=== PATIENT | female | born 1985 | race Hispanic/Latino ===

== ENCOUNTER 2019-12-31 21:42 | Emergency (ER) | payer OTHER ==
[~2019-12-31] VITALS: Ht 157.5 cm; Wt 113.4 kg
[2019-12-31] MEDS ORDERED: ACETAMINOPHEN 325 MG TAB ONE (22:00)
[2019-12-31] MEDS: ACETAMINOPHEN 325 MG TAB PO STA (22:00)
--- NOTE | 2019-12-31 23:17 | Diagnostic Imaging Report ---
EXAMINATION: CXR 2 VIEW - HOPD INDICATION: ^cough and fever COMPARISON: None FINDINGS: PA and lateral views TUBES and LINES: None. LUNGS: Lungs are well inflated. There is no evidence of pneumonia or pulmonary edema. PLEURA: No pleural effusion or pneumothorax. HEART AND MEDIASTINUM: The cardiomediastinal silhouette is unremarkable.. BONES AND SOFT TISSUES: No focal osseous lesions. Soft tissues are unremarkable. UPPER ABDOMEN: Unremarkable. IMPRESSION: No acute thoracic abnormality. Signed by: Dr. Eduar Garcia MD on 12/31/2019 11:15 PM
[2019-12-31] MEDS ORDERED: TAMIFLU75 MG PO (23:28)
[2019-12-31] MEDS ORDERED: AZITHROMYCIN250 MG PO (23:31)
[2019-12-31] MEDS ORDERED: TESSALON PERLE100 MG PO (23:31)
[2019-12-31 23:49] VITALS: BP 137/74
== END 2019-12-31 23:52 | disposition home or self-care (01) ==
LOC: FSED 21:42
DX: R50.9 Fever, unspecified (principal); R05 Cough; J20.8 Acute bronchitis due to other specified organisms
CPT/HCPCS: 71046; 80053; 83518; 85025; 87400; 99283

== ENCOUNTER 2021-01-31 10:09 | Emergency (ER) | payer OTHER ==
[~2021-01-31] VITALS: Ht 157.5 cm; Wt 113.4 kg
[~2021-01-31 10:09] MED LIST: AZITHROMYCIN250 MG PO; TAMIFLU75 MG PO; TESSALON PERLE100 MG PO
[2021-01-31] MEDS ORDERED: MORPHINE SULFATE INJ 4 MG/ML INJ 1ML IV STA (10:16)
[2021-01-31] MEDS ORDERED: ONDANSETRON HCL INJ 2MG/ML 2ML 2 MG/ML VIAL IV STA (10:16)
[2021-01-31] MEDS ORDERED: SODIUM CHLORIDE 0.9% 1000ML 1,000 ML IV STA (10:16)
[2021-01-31] MEDS ORDERED: PIPERACILLIN/TAZOBAC 3.375 GM in SODIUM CHLORIDE 0.9% 50ML 50 ML IV STA (10:16)
[2021-01-31 10:41] LABS: BASOPHILS # (AUTO) 0.1 (0.0-0.1); BASOPHILS % 0.4 % (0.0-1.0); EOSINOPHILS # (AUTO) 0.1 (0.0-0.4); EOSINOPHILS % 0.5 % (0.0-6.0); HEMATOCRIT 43.6 % (34.2-44.1); HEMOGLOBIN 14.3 g/dL (12.0-16.0); LYMPHOCYTES # (AUTO) 2.7 (1.0-3.2); LYMPHOCYTES % 23.2 % (18.0-39.1); MEAN CORPUSCULAR HEMOGLOBIN 26.5 pg (28-32); MEAN CORPUSCULAR HGB CONC 32.8 g/dL (31-35); MEAN CORPUSCULAR VOLUME 80.9 fL (81-99); MONOCYTES # (AUTO) 0.6 (0.2-0.8); NEUTROPHILS # (AUTO) 8.3 (2.1-6.9); NEUTROPHILS % 70.6 % (38.7-80.0); PLATELET COUNT 266 x10e3/uL (140-360); RED BLOOD COUNT 5.39 x10e6/uL (3.6-5.1); RED CELL DISTRIBUTION WIDTH 14.1 % (11.7-14.4)
[2021-01-31] MEDS ORDERED: MORPHINE SULFATE INJ 2 MG/ML SYR ONE (11:06)
[2021-01-31 11:14] LABS: ALANINE AMINOTRANSFERASE 161 IU/L (0-55); ALBUMIN 3.9 g/dL (3.5-5.0); ALKALINE PHOSPHATASE 83 IU/L (40-150); ANION GAP 17.6 mmol/L (8-16); BLOOD UREA NITROGEN 5 mg/dL (7-26); BUN/CREATININE RATIO 7 (6-25); CALCIUM 9.4 mg/dL (8.4-10.2); CARBON DIOXIDE 24 mmol/L (22-29); CHLORIDE 102 mmol/L (98-107); CREATININE, SERUM 0.67 mg/dL (0.57-1.11); EST GLOMERULAR FILTRATION RATE > 60 ML/MIN (60-); GLUCOSE 132 mg/dL (74-118); LIPASE 7 U/L (8-78); POTASSIUM 3.6 mmol/L (3.5-5.1); SODIUM 140 mmol/L (136-145)
[2021-01-31] MEDS ORDERED: IOPAMIDOL 370 MG/ML 200 ML INFUS..BTL INJ ONE (11:32)
[2021-01-31] MEDS ORDERED: SODIUM CHLORIDE 0.9% 50ML 50 ML ONE (11:32)
[2021-01-31 12:57] VITALS: BP 120/68
== END 2021-01-31 12:58 | disposition home or self-care (01) ==
LOC: ER 10:20
DX: R10.13 Epigastric pain (principal); R42 Dizziness and giddiness
CPT/HCPCS: 36415; 71045; 74177; 80053; 83690; 84702; 85025; 93005; 99283; J2270 ×2; J2405; J7030; Q9967

== ENCOUNTER 2021-02-04 00:05 | Emergency (ER) | payer OTHER ==
[~2021-02-04] VITALS: Ht 157.5 cm; Wt 113.4 kg
[2021-02-04 00:29] LABS: BASOPHILS # (AUTO) 0.1 (0.0-0.1); BASOPHILS % 0.4 % (0.0-1.0); EOSINOPHILS # (AUTO) 0.1 (0.0-0.4); EOSINOPHILS % 0.9 % (0.0-6.0); HEMATOCRIT 42.5 % (34.2-44.1); HEMOGLOBIN 13.7 g/dL (12.0-16.0); LYMPHOCYTES # (AUTO) 3.3 (1.0-3.2); MEAN CORPUSCULAR HEMOGLOBIN 26.4 pg (28-32); MEAN CORPUSCULAR HGB CONC 32.2 g/dL (31-35); MEAN CORPUSCULAR VOLUME 81.9 fL (81-99); MONOCYTES # (AUTO) 0.7 (0.2-0.8); MONOCYTES % 5.7 % (4.4-11.3); NEUTROPHILS # (AUTO) 8.1 (2.1-6.9); NEUTROPHILS % 65.6 % (38.7-80.0); PLATELET COUNT 268 x10e3/uL (140-360); RED BLOOD COUNT 5.19 x10e6/uL (3.6-5.1); RED CELL DISTRIBUTION WIDTH 14.6 % (11.7-14.4)
[2021-02-04] MEDS ORDERED: SODIUM CHLORIDE 0.9% 50ML 50 ML ONE (00:39)
[2021-02-04] MEDS ORDERED: IOPAMIDOL 370 MG/ML 200 ML INFUS..BTL INJ ONE (00:39)
[2021-02-04 00:40] LABS: ALANINE AMINOTRANSFERASE 163 IU/L (0-55); ALBUMIN 3.9 g/dL (3.5-5.0); BLOOD UREA NITROGEN 5 mg/dL (7-26); BUN/CREATININE RATIO 7 (6-25); CALCIUM 9.3 mg/dL (8.4-10.2); CARBON DIOXIDE 27 mmol/L (22-29); CREATININE, SERUM 0.67 mg/dL (0.57-1.11); EST GLOMERULAR FILTRATION RATE > 60 ML/MIN (60-); GLUCOSE 146 mg/dL (74-118)
[2021-02-04 01:04] LABS: ALKALINE PHOSPHATASE 89 IU/L (40-150); ANION GAP 15.1 mmol/L (8-16); CHLORIDE 103 mmol/L (98-107); POTASSIUM 4.1 mmol/L (3.5-5.1); SODIUM 140 mmol/L (136-145)
[2021-02-04] MEDS ORDERED: KETOROLAC TROMETHAMINE 30 MG/ML VIAL IV STA (01:40)
[2021-02-04] MEDS ORDERED: MORPHINE SULFATE INJ 2 MG/ML SYR IV STA (01:40)
[2021-02-04] MEDS ORDERED: ONDANSETRON HCL INJ 2MG/ML 2ML 2 MG/ML VIAL IV STA (01:40)
[2021-02-04] MEDS ORDERED: IBUPROFEN600 MG PO (02:03)
[2021-02-04] MEDS ORDERED: ORPHENADRINE C100 MG PO (02:03)
[2021-02-04] MEDS ORDERED: ULTRAM50 MG PO (02:03)
[2021-02-04 03:29] VITALS: BP 106/74
== END 2021-02-04 03:32 | disposition home or self-care (01) ==
LOC: ER 00:13
DX: M25.511 Pain in right shoulder (principal); S46.811A Strain of other muscles, fascia and tendons at shoulder and upper arm level, right arm, initial encounter; S16.1XXA Strain of muscle, fascia and tendon at neck level, initial encounter; S39.012A Strain of muscle, fascia and tendon of lower back, initial encounter; V86.55XA Driver of 3- or 4- wheeled all-terrain vehicle (ATV) injured in nontraffic accident, initial encounter; Y92.828 Other wilderness area as the place of occurrence of the external cause; K76.0 Fatty (change of) liver, not elsewhere classified
CPT/HCPCS: 36415; 70450; 71260; 72125; 73030; 74177; 80053; 84702; 85025; 99284; J1885; J2270; J2405; Q9967

== ENCOUNTER 2025-08-18 20:58 | Emergency (ER) | payer SELFPAY ==
[~2025-08-18] VITALS: Ht 152.4 cm; Wt 71.2 kg
[~2025-08-18 20:58] MED LIST changes: +IBUPROFEN600 MG PO; +ORPHENADRINE C100 MG PO; +ULTRAM50 MG PO
[2025-08-19] MEDS: ORPHENADRINE CITRATE 30 MG/ML VIAL IM ONE (00:13)
[2025-08-19] MEDS: KETOROLAC TROMETHAMINE 60 MG/2 ML VIAL IM ONE (00:13)
[2025-08-19] MEDS ORDERED: NAPROSYN500 MG PO (00:46)
[2025-08-19 01:10] VITALS: PULSE 72; RESP 18; TEMP 98.3; O2SAT 98
== END 2025-08-19 01:10 | disposition home or self-care (01) ==
LOC: ER 23:44
DX: G44.209 Tension-type headache, unspecified, not intractable (principal); M62.838 Other muscle spasm; M54.2 Cervicalgia; M25.512 Pain in left shoulder
CPT/HCPCS: 99284